=== PATIENT | female | born 1970 | race Caucasian/White ===

== ENCOUNTER 2017-01-31 08:16 | Day surgery (SDC) | payer OTHER ==
[~2017-01-31 08:16] MED LIST: ACETAMINOPHEN 500 MG TAB PO ONE; CLINDAMYCIN 900 MG/DEXTROSE 50 ML IV ONE; LIDOCAINE 1% 300 MG/30 ML SDV ONE; PREGABALIN 150 MG CAP PO ONE; SCOPOLAMINE HYDROBROMIDE 1.5 MG PATCH TD ONE
[2017-01-31] MEDS ORDERED: ACETAMINOPHEN 500 MG TAB ONE ×2 (08:42→08:51)
[2017-01-31] MEDS ORDERED: PREGABALIN 150 MG CAP ONE (08:42)
[2017-01-31] MEDS ORDERED: SCOPOLAMINE HYDROBROMIDE 1.5 MG PATCH TD ONE (08:42)
[2017-01-31] MEDS ORDERED: CLINDAMYCIN 900 MG/DEXTROSE/50 ML BAG IV ONE (08:43)
[2017-01-31] MEDS ORDERED: PROPOFOL 200 MG/20 ML VIAL ONE (10:14)
[2017-01-31] MEDS ORDERED: fentaNYL 100 MCG/2 ML INJ ONE (10:14)
[2017-01-31] MEDS ORDERED: LIDOCAINE 2% JELLY 5 ML TUBE ONE (10:16)
[2017-01-31] MEDS ORDERED: METOCLOPRAMIDE 10 MG/2 ML VIAL ONE (10:16)
[2017-01-31] MEDS ORDERED: DEXAMETHASONE 4 MG/ML VIAL ONE ×2 (10:16)
[2017-01-31] MEDS ORDERED: ONDANSETRON 4 MG/2 ML VIAL ONE (10:16)
[2017-01-31] MEDS ORDERED: MIDAZOLAM 2 MG/2 ML VIAL ONE (10:29)
[2017-01-31] MEDS ORDERED: epHEDrine SULFATE 10 MG/ML SYR ONE (10:47)
== END 2017-01-31 12:35 | disposition home or self-care (01) ==
LOC: FSGY 08:16
PROVIDERS: ATTEND Orthopaedic Surgery Sports Medicine
PROC: 0SPB04Z Removal of Internal Fixation Device from Left Hip Joint, Open Approach (ICD-10-PCS; principal; 2017-01-31 10:15)
DX: T84.84XA Pain due to internal orthopedic prosthetic devices, implants and grafts, initial encounter (principal); M25.552 Pain in left hip
CPT/HCPCS: J1100; J2250; J2405; J2704; J2765; J3010